=== PATIENT | female | born 1960 | race Caucasian/White ===

== ENCOUNTER 2020-07-10 22:21 | Emergency (ER) | payer MEDICARE, OTHER ==
[~2020-07-10] VITALS: Ht 160 cm; Wt 68.0 kg
--- NOTE | 2020-07-10 22:27 | NUR ---
ED Nurse Note: Patient MARILINA RA 25. Patient left her facility since noon was found in the streets. Patient expresses that she does not want to go back to the facility, her mother is aware and she is willing to take her back.Patient is AOX3, disoriented to time, forgetful. calm and cooperative.
--- NOTE | 2020-07-10 23:19 | NUR ---
ED Nurse Note: Pts former psych facility [phone] Pts mother [phone]
--- NOTE | 2020-07-10 23:49 | Emergency Room Report ---
History of Present Illness General Chief Complaint: General Complaint Source: Patient, EMS, Caregiver Present Illness HPI 60-year-old female with past medical history of bipolar disorder and hemorrhoids on by ambulance for placement. Patient apparently left AGAINST MEDICAL ADVICE [facility] stating that she no longer wants to be a patient there and would like to be taken to her mother's house. Unfortunately, the ambulance was unable to take her to her mother's house and had to bring her to the emergency department for medical evaluation. Patient has no complaints at this time. She denies any auditory/visual hallucinations, SI, HI, headache, neck pain, photophobia, nausea, vomiting, diarrhea, hematuria, dysuria, diarrhea, melena, hematochezia, back pain, chest pain, cough, SOB, weakness or difficulty walking. Police filed a missing persons report prior to arrival. I spoke with CLARISA Trujillo at [facility] at who states that patient has been in the streets and complaining of hemorrhoids. Dre clay, however, denies complaints of hemorrhoids at this time. She denies concern for STI and is declining empiric treatment/testing The patient's symptoms were gradual onset, severity was moderate, duration since 1 day. Quality: Denies pain Past medical history: Bipolar, Polysubstance abuse, hemorrhoids Past surgical history: Denies Smoking: Positive Alcohol use: Quit Drug use: Quit Review of systems: CONST: No fevers or chills, No night sweats PULMONARY: No productive cough, No shortness of breath CARDIAC: No chest pain, No palpitations GI: No vomiting, No diarrhea , No melena_or_BRBPR : No dysuria, No hematuria, No discharge NEURO: No new_focal_weakness_or_numbness, No confusion, No vision changes 14 point Review of Systems is otherwise negative except per HPI Physical Exam: GENERAL: Awake_alert_ nontoxic, no acute distress Spo2 98% on RA -normal EYES: Extraocular muscles are intact. Conjunctivae clear. Lids without swelling ENT: External nose and ear normal_in_appearance. Oropharynx clear. H ead_atraumatic, Moist_oral_mucosa NECK: No JVD. No meningismus. No thyromegaly. Supple. Trachea midline RESP: Normal respiratory effort. Symmetric rise. No stridor. Clear_to_auscultation_No_rales_No_wheezes CARDIAC: Regular rate and regular rhytm. No_significant pedal edema. ABDOMEN: Soft. Nondistended. Nontender_No_rebound_or_guarding. MSK: Normal muscle tone, without rigidity. Extremities without asymmetric deformity or swelling. SKIN: Warm and dry. No visible cyanosis or pallor NEUROLOGIC: Alert, oriented x3. Motor_and_sensation_grossly_intact. No truncal ataxia. Gait_normal Psych: Normal mood and affect, normal judgment and insight. Denies SI, HI, auditory or visual hallucinations. - COORDINATION OF CARE Case was discussed with: Patient , Patient's Family Medical Decision Making/Plan: Patient denies any complaints whatsoever. Denies SI/HI/Auditory or visual hallucination. She left her facility against medical advice and is refusing to go back there. She appears to have the medical capacity to make this decision. I spoke with CLARISA Trujillo at [facility] who states that the patient is well-known for l eaving their facility, and they are unwilling to take her back at this time. I spoke with patient's mother, Ute who is aware of the situation, and is willing to accept patient back under her care. Apparently CLARISA Trujillo at the [facility] had already talked to her this afternoon to arrange a place for Ute to stay. The mother has been agreeable to receiving her daughter back home, but she is requesting a taxi to to transport her daughter to her address: [address] [place] [address], [place] [phone] Patient is agreeable to the plan and has capacity to make her own decisions at this time. She will be discharged pending social work to arrange transportation. Pertinent results reviewed with the patient. I educated the patient on the curre nt treatment plan including the risks, benefits, and alternatives. I also discussed the extent and limitations of the current evaluation. The patient expressed understanding and agreement with plan. I recommended PMD follow-up within 1-2 days. Also advised that the patient return to the Emergency Department as soon as possible if they experience any new, persistent, or worsening symptoms. Allergies: Coded Allergies: No Known Allergies (Unverified , 07/10/20) COVID-19 Screening Contact w/high risk pt: No Experienced COVID-19 symptoms?: No COVID-19 Testing performed MAINSPRING STRIP GAUGER: No COVID-19 Screening: Negative COVID-19 Patient History Now: No Nursing Documentation-[facility] History Of Psychiatric Problem: Yes Physical Exam Vital Signs Date Time Temp Pulse Resp B/P (MAP) Pulse Ox O2 Delivery O2 Flow Rate FiO2 07/10/20 22:27 97.3 76 20 138/78 (98) 99 Sp02 EP Interpretation: reviewed, normal Medical Decision Making Diagnostic Impression: Primary Impression: Encounter for generalized patient complaints Additional Impression: Bipolar 1 disorder, mixed Last Vital Signs Date Time Temp Pulse Resp B/P (MAP) Pulse Ox O2 Delivery O2 Flow Rate FiO2 07/10/20 22:27 97.3 76 20 138/78 (98) 99 Disposition: HOME, SELF-CARE Admit Decision Time: 06:00 Condition: Stable Referrals: NOT CHOSEN IPA/MD,REFERRING (PCP) Additional Instructions: 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 Follow-up with your psychiatrist for the continuation of your chronic psychiatric medications Follow-up with your doctor sooner if your condition requires a more timely clinical reevaluation. Return to the emergency department immediately if you feel that your condition is worsening or if you have any new or concerning symptoms. Review your discharge instructions and take any prescriptions given as i nstructed. [facility] PROVIDES FREE OR LOW-COST HEALTH SERVICES TO PEOPLE WHO CAN SHOW PROOF THAT THEY LIVE IN [facility]. TO FIND MORE CLINICS PARTNERED WITH THE [facility] TO PROVIDE SERVICE, PLEASE CALL . Clover Nielsen D.O. Jul 10, 2020 23:49
[2020-07-11 00:23] VITALS: BP 124/73
--- NOTE | 2020-07-11 02:16 | NUR ---
Patient is resting in bed comfortably.
--- NOTE | 2020-07-11 04:07 | NUR ---
ED Nurse Note: Patient continues to rest in bed with eyes closed, calm, respirations even unlabored. No acute distress noted.
--- NOTE | 2020-07-11 06:11 | NUR ---
Patient is awake alert oriented x3, disorieneted time, resting comfortably in bed, denies any complaints. will continue to monitor.
--- NOTE | 2020-07-11 06:13 | NUR ---
Patient 's discharge is pending social service consult.
[2020-07-11 07:30] VITALS: BP 110/68
--- NOTE | 2020-07-11 07:30 | NUR ---
HAND-OFF: Report received from Nicol MCKENNA.
--- NOTE | 2020-07-11 08:35 | NUR ---
OVEN LOADER NOTE YESSENIA and assigned RN spoke w/ pt's mother [phone], and the global transportation manager, Cassandra [phone] over the phone that pt is not welcome to return mother's place in [place]. Cassandra reports she is willing to accept pt back to the facility. YESSENIA relayed message to pt that she is not welcome to return to her mother's place. PT agreed to be go back to the facility. [facility] [address] [place] [id number].
--- NOTE | 2020-07-11 08:56 | NUR ---
PER AIR FILLER PATIENT WANTS TO GO BACK TO [facility] . with provided transportaion
--- NOTE | 2020-07-11 10:06 | NUR ---
0730: pt in room. resting in bed social work arranging ride/transportation/placement for pt. pt states she is willing to go back [facility], as her mother is too sick to come pick her up and drive her to [place].
--- NOTE | 2020-07-11 10:41 | NUR ---
called [employer] cab to take patient to the [facility]voucher [place] [phone]
[2020-07-11 10:55] VITALS: BP 111/72
--- NOTE | 2020-07-11 10:55 | NUR ---
ER DISCHARGE NOTE: Patient is cleared to be discharged per ERMD, pt is aox4, on room air, with stable vital signs. pt was given dc instructions, pt was able to verbalize understanding. pt is able to ambulate with steady gait. pt took all belongings. pt picked up in taxi to go t [facility].
[2020-07-11 11:02] VITALS: BP 130/80
== END 2020-07-10 23:30 | disposition home or self-care (01) ==
LOC: EDBD 22:21 → EMR 23:09
DX: Z76.89 Persons encountering health services in other specified circumstances (principal); F31.89 Other bipolar disorder; F19.11 Other psychoactive substance abuse, in remission; F17.200 Nicotine dependence, unspecified, uncomplicated
CPT/HCPCS: 99281